=== PATIENT | female | born 1950 | race Caucasian/White ===

== ENCOUNTER 2019-01-14 11:01 | Emergency (ER) | payer MEDICARE, OTHER ==
[~2019-01-14] VITALS: Ht 160 cm; Wt 68.0 kg
[2019-01-14 11:15] VITALS: Ht 160 cm; Wt 68.0 kg
[2019-01-14] MEDS ORDERED: EPINEPHrine 1 MG INJ IM STA (11:19)
[2019-01-14] MEDS ORDERED: DIPHENHYDRAMINE 50 MG INJ IV STA (11:19)
[2019-01-14] MEDS ORDERED: SOD CHLORIDE 0.9% 1,000 ML IV STA (11:19)
[2019-01-14] MEDS ORDERED: METHYLPREDNISOLONE 125 MG INJ IV STA (11:19)
[2019-01-14] MEDS ORDERED: FAMOTIDINE 20 MG INJ IV STA (11:19)
[2019-01-14] MEDS ORDERED: LATA2.5D2 BOTH EYES (11:45)
[2019-01-14] MEDS ORDERED: OMEP40CA6 PO (11:46)
[2019-01-14] MEDS ORDERED: ALEN70TA5 PO (11:46)
[2019-01-14] MEDS ORDERED: METR500T PO (13:41)
[2019-01-14] MEDS ORDERED: BEN50 PO (13:41)
--- NOTE | 2019-01-14 14:17 | ERD ---
ER Documentation Chief Complaint Chief Complaint PT BIB RA with generalized body rash from amoxicillin. HPI This is a 68-year-old female with a recent diagnosis of H. pylori started on amoxicillin and erythromycin after an upper endoscopy by her GI physician. The patient indicates that she had been on the antibiotics for 2 days after she developed diffuse pruritus and redness of her skin. She has an allergy to penicillin and sulfas. She denies any swelling of her lips or tongue and states she has no difficulty in breathing. She denies any chest pain or palpitations. She went to an urgent care clinic who instructed her to stop taking the amoxicillin and go to the emergency department for further evaluation. She indicates she has not taken the amoxicillin for over 24 hours but her symptoms have not improved. ROS All systems reviewed and are negative except as per history of present illness. Medications Home Meds Active Scripts Metronidazole* (Flagyl*) 500 Mg Tablet, 500 MG PO BID for 7 Days, TAB Prov:NERISSA TUCKER MD 01/14/19 Diphenhydramine Hcl* (Benadryl*) 50 Mg Cap, 50 MG PO Q6H PRN for ITCHING/RASH, #30 CAP Prov:NERISSA TUCKER MD 01/14/19 Reported Medications Omeprazole* (Omeprazole*) 40 Mg Capsule.dr, 40 MG PO DAILY, #30 CAP 01/14/19 Alendronate Sodium* (Fosamax*) 70 Mg Tablet, 70 MG PO Q7D, #4 TAB 01/14/19 Latanoprost (Latanoprost) 2.5 Ml Drops, 1 DROP BOTH EYES QHS, #1 BOTTLE 01/14/19 Allergies Allergies: Coded Allergies: Penicillins (Verified Allergy, Intermediate, rash, 01/14/19) Sulfa (Sulfonamide Antibiotics) (Verified Allergy, Intermediate, rash/welts, 01/14/19) iodine (Verified Allergy, Intermediate, rash, 01/14/19) PMhx/Soc History of Surgery: Yes (Hysterectomy) Anesthesia Reaction: No Hx Neurological Disorder: No Hx Respiratory Disorders: No Hx Psychiatric Problems: No Hx Miscellaneous Medical Probl: Yes (DM, osteoporosis, glacoma) Hx Alcohol Use: No Hx Substance Use: No Hx Tobacco Use: No Smoking Status: Former smoker Physical Exam Vitals Vital Signs Date Temp Pulse Resp B/P (MAP) Pulse Ox O2 O2 Flow FiO2 Time Delivery Rate 3/30/19 92 16 139/63 97 Room Air 13:09 (88) 01/14/19 98.0 92 18 137/60 100 11:15 (85) Physical Exam Constitutional:Well-developed. Well-nourished. HEENT:Normocephalic. Atraumatic.Pupils were equal round reactive to light. Moist mucous membranes.No tonsillar exudates. No angioedema. No macroglossia Neck: No nuchal rigidity. No lymphadenopathy. No posterior cervical spine tenderness or step-offs. Respiratory: Not using accessory muscles of respiration.Lungs were clear to auscultation bilaterally. No rhonchi. No rales. No wheezing. Cardiovascular: Regular rate regular rhythm.No murmurs. No rubs were appreciated.S1, S2 normal. Distal pulses are palpable 2+ bilaterally. GI: Abdomen was soft. Nontender. Non Distended. No pulsatile abdominal masses or bruits. No rebound. No guarding. Bowel sounds were present and normal. Muscle skeletal: Full range of motion of both the upper and lower extremities bilaterally.Normal muscle tone.No assymetrical calf tenderness or swelling. Skin: Diffuse erythema and warmth. No petechia, no purpura. No lesions on the palms or the soles of the feet. No maculopapular rash. Urticarial rash present on the abdomen upper and lower extremities with no involvement of the face NEURO: Patient was alert, awake, orientated x3.No facial droop. Gait observed and normal with no ataxia.Speech had regular rate and rhythm. No focal neurological deficits. Results 24 hrs Current Medications Medications Dose Sig/Haritha Start Time Status Last (Trade) Ordered Route PRN Stop Time Admin Dose Reason Admin 50 mg ONCE STAT 01/14/19 DC 01/14/19 Diphenhydrami IV 11: 11:43 ne HCl 01/14/19 11:21 (Benadryl) Epinephrine 0.5 mg ONCE STAT 01/14/19 DC 01/14/19 IM 11: 11:44 (EPINEPHrine) 01/14/19 11:21 Famotidine 20 mg ONCE STAT 01/14/19 DC 01/14/19 (Pepcid Iv) IV 11: 11:43 01/14/19 11:21 125 mg ONCE STAT 01/14/19 DC Methylprednis IV 11:19 olone Sodium 01/14/19 11:21 Succinate (Solu-Medrol) Sodium 1,000 ml @ Q1H STAT 01/14/19 DC 01/14/19 Chloride 1,000 mls/hr IV 11:19 11:43 01/14/19 12:18 Procedures/MDM This is a 68-year-old female that presented to the emergency department with physical exam findings that appeared to be a result of a severe allergic reaction secondary to amoxicillin. The patient was placed on a manager cardiac cath continuous pulse oximetry and IV access was established by nursing staff. The patient had no evidence of angioedema. The patient did not appear to be in anaphylactic shock. She was given IV fluids IV Benadryl epinephrine IV Pepcid and a nebulizer treatment. Her symptoms had significantly improved. Her urticaria rash had significantly improved. Again there is no evidence of airway compromise. She was instructed to no longer take the amoxicillin. She was replaced with Flagyl given that she was recently diagnosed with H. pylori and given triple antibiotics. She was not given steroids that she has a history of glaucoma was instructed by her director of maintenance to not administer steroids orally for any indication. The patient was discharged home in fair condition. They were instructed to return to the emergency department at any time if there was any worsening of their condition. The patient stated they would follow up with their PCP in the next 24-48 hours to initiate a suitable medication regimen under the care of their PCP as well as to allow their PCP to monitor any drug reactions. The patient was discharged home with prescriptions after they gave informed consent to the new medication. They were also fully informed by myself on the adverse effects and adverse drug interactions in order to provide adequate safeguards to prevent possible adverse reactions to medications. Departure Diagnosis: Primary Impression: Allergic drug reaction Encounter type: initial encounter Qualified Codes: T78.40XA - Allergy, unspecified, initial encounter Condition: Fair Patient Instructions: Allergic Reaction, Drug NERISSA TUCKER MD Jan 14, 2019 14:17
[2019-01-14 14:23] VITALS: BP 136/63; PULSE 84; RESP 18
[2019-01-15] MEDS ORDERED: PRED20TA PO (12:55)
== END 2019-01-14 14:26 | disposition home or self-care (01) ==
LOC: E/R 11:01
DX: L50.9 Urticaria, unspecified (principal); T36.0X5A Adverse effect of penicillins, initial encounter; E11.9 Type 2 diabetes mellitus without complications; Z87.891 Personal history of nicotine dependence
CPT/HCPCS: 96372; 96374; 96375; 99284; J0171; J1200; J2930; J7030

== ENCOUNTER 2019-01-15 11:32 | Emergency (ER) | payer MEDICARE, OTHER ==
[~2019-01-15] VITALS: Ht 167.6 cm; Wt 60.3 kg
[~2019-01-15 11:32] MED LIST: ALEN70TA5 PO; BEN50 PO; LATA2.5D2 BOTH EYES; METR500T PO; OMEP40CA6 PO
[2019-01-15 11:36] VITALS: Ht 167.6 cm; Wt 60.3 kg
[2019-01-15] MEDS ORDERED: PRED20TA PO (12:55)
[2019-01-15] MEDS ORDERED: DEXAMETHASONE 10 MG/ML 1 ML INJ IM ONE (13:00)
[2019-01-15] MEDS ORDERED: DIPHENHYDRAMINE 50 MG INJ IM ONE (13:00)
--- NOTE | 2019-01-15 13:29 | ERD ---
ER Documentation Chief Complaint Chief Complaint Complains of bilateral eye pain x 2 days HPI 68-year-old female with history of asthma, presents due to allergic reaction. Patient states that she was recently put on clarithromycin as well as amoxicillin for treatment of H. pylori and after she started taking the me dication she broke out into hives. Patient was here yesterday for same complaint and given allergic reaction treatment as well as Rx for Benadryl but she states that she has not been taking the Benadryl for fear of worsening her glaucoma. Denies wheezing, respiratory distress, syncope, dizziness, vomiting. ROS All systems reviewed and are negative except as per history of present illness. Medications Home Meds Active Scripts Prednisone* (Prednisone*) 20 Mg Tab, 60 MG PO DAILY for allergic reaction for 4 Days, TAB Prov:LINDEN MONAHAN 01/15/19 Metronidazole* (Flagyl*) 500 Mg Tablet, 500 MG PO BID for 7 Days, TAB Prov:NERISSA TUCKER MD 01/14/19 Diphenhydramine Hcl* (Benadryl*) 50 Mg Cap, 50 MG PO Q6H PRN for ITCHING/RASH, #30 CAP Prov:NERISSA TUCKER MD 01/14/19 Reported Medications Omeprazole* (Omeprazole*) 40 Mg Capsule.dr, 40 MG PO DAILY, #30 CAP 01/14/19 Alendronate Sodium* (Fosamax*) 70 Mg Tablet, 70 MG PO Q7D, #4 TAB 01/14/19 Latanoprost (Latanoprost) 2.5 Ml Drops, 1 DROP BOTH EYES QHS, #1 BOTTLE 01/14/19 Allergies Allergies: Coded Allergies: Penicillins (Verified Allergy, Intermediate, rash, 01/15/19) Sulfa (Sulfonamide Antibiotics) (Verified Allergy, Intermediate, rash/welts, 01/15/19) iodine (Verified Allergy, Intermediate, rash, 01/15/19) PMhx/Soc History of Surgery: Yes (Hysterectomy) Anesthesia Reaction: No Hx Neurological Disorder: No Hx Respiratory Disorders: No Hx Psychiatric Problems: No Hx Miscellaneous Medical Probl: Yes (DM, osteoporosis, glacoma) Hx Alcohol Use: No Hx Substance Use: No Hx Tobacco Use: No Smoking Status: Never smoker FmHx Family History: No diabetes, No coronary disease, No other Physical Exam Vitals Vital Signs Date Temp Pulse Resp B/P (MAP) Pulse Ox O2 O2 Flow FiO2 Time Delivery Rate 01/15/19 98.7 86 20 152/69 98 11:36 (96) Physical Exam Const: No acute distress Head: Atraumatic Eyes: Normal Conjunctiva ENT: Normal External Ears, Nose and Mouth. Tongue is nonedematous. No angioedema noted. Airways patent and clear. Neck: Full range of motion. No meningismus. Resp: Clear to auscultation bilaterally. There are no wheezes or retractions noted. Cardio: Regular rate and rhythm, no murmurs Abd: Soft, non tender, non distended. Normal bowel sounds Skin: Urticaria's rash noted over back, stomach, legs bilaterally, neck. Back: No midline or flank tenderness Ext: No cyanosis, or edema Neur: Awake and alert Psych: Normal Mood and Affect Results 24 hrs Current Medications Medications Dose Sig/Haritha Start Time Status Last (Trade) Ordered Route PRN Stop Time Admin Dose Reason Admin 10 mg ONCE ONCE 01/15/19 DC 01/15/19 Dexamethasone IM 13:00 12:57 (Decadron) 01/15/19 13:01 50 mg ONCE ONCE 01/15/19 DC 01/15/19 Diphenhydrami IM 13:00 13:03 ne HCl 01/15/19 13:01 (Benadryl) Procedures/MDM Dr. Moffett and I educated the patient regarding the importance of taking the Benadryl and that only taking for short period time will not worsen her glaucoma. Patient understood and agreed to start taking the Benadryl. In addition patient was given IM Decadron as well as IM Benadryl in the ER, and the discharged with prednisone for 5 days. Patient agreed to take the prednisone if the rash is not resolved in the morning. I have low suspicion for anaphylaxis, respiratory distress, airway occlusion, hypertension, or any other emergent condition. Patient discharged with strict ER precautions. Patient advised to follow up with PMD. All questions answered at discharge. Departure Diagnosis: Primary Impression: Allergic reaction Encounter type: subsequent encounter Qualified Codes: T78.40XD - Allergy, unspecified, subsequent encounter Condition: Stable Patient Instructions: First Aid: Allergic Reactions, Allergic Reaction, Drug Referrals: [facility] YOU HAVE RECEIVED A MEDICAL SCREENING EXAM AND THE RESULTS INDICATE THAT YOU DO NOT HAVE A CONDITION THAT REQUIRES URGENT TREATMENT IN THE EMERGENCY DEPARTMENT. FURTHER EVALUATION AND TREATMENT OF YOUR CONDITION CAN WAIT UNTIL YOU ARE SEEN IN YOUR DOCTORS OFFICE WITHIN THE NEXT 1-2 DAYS. IT IS YOUR RESPONSIBILITY TO MAKE AN APPOINTMENT FOR FOLOW-UP CARE. IF YOU HAVE A PRIMARY DOCTOR --you should call your primary doctor and schedule an appointment IF YOU DO NOT HAVE A PRIMARY DOCTOR YOU CAN CALL OUR PHYSICIAN REFERRAL HOTLINE AT IF YOU CAN NOT AFFORD TO SEE A PHYSICIAN YOU CAN CHOSE FROM THE FOLLOWING [facility] [address] [facility]. [facility] [address] [facility] [facility] [address] [facility] [address]. [facility] [address] [facility]. [facility] [address] Additional Instructions: FOLLOW UP WITH YOUR PRIMARY CARE PHYSICIAN TOMORROW.Return to this facility if you are not improving as expected. LINDEN MONAHAN Jan 15, 2019 13:29
[2019-01-15 13:38] VITALS: BP 148/62; PULSE 67; RESP 18
== END 2019-01-15 13:39 | disposition home or self-care (01) ==
LOC: FTE 11:32
DX: L50.9 Urticaria, unspecified (principal); T36.0X5A Adverse effect of penicillins, initial encounter; T36.3X5A Adverse effect of macrolides, initial encounter; E11.9 Type 2 diabetes mellitus without complications
CPT/HCPCS: J1100; J1200; 96372